=== PATIENT | male | born 1990 | race Caucasian/White ===

== ENCOUNTER 2016-06-02 13:29 | Emergency (ER) | payer OTHER ==
--- NOTE | 2016-06-02 14:06 | DIAGNOSTIC IMAGING REPORT ---
PROCEDURE: XR CHEST 2 VIEW INDICATION: CHEST PAIN TECHNIQUE: PA and lateral views. COMPARISON: Chests 10/20/2015, 2013 and 2009 FINDINGS: Lungs are clear. Heart and mediastinum are normal. Thorax is normal. IMPRESSION: 1. Negative chest.
--- NOTE | 2016-06-02 15:43 | ED ORDER SUMMARY ---
..... Patient: JASON MATHIS OrderSheet [facility] VisitID: [id number] [place] [address] 25y, M Registration Date/Time: 06/02/2016 ORDER SHEET Weight: 171.5 kg Allergies: Codeine, Toradol GENERAL ORDERS: Chest 2V Urgent (13:40 06/02/2016 EKoroleva P.A.-C) (Ack 13:42 RKaruga) Account Resolution Analyst (Continuous) (13:40 06/02/2016 EKoroleva P.A.-C) (Ack 13:42 RKaruga) (14:13 RKaruga) (14:13 EBonham) Cardiac Panel Stat (13:40 06/02/2016 EKoroleva P.A.-C) (Ack 13:42 RKaruga) EKG - ER Stat (13:40 06/02/2016 EKoroleva P.A.-C) (Ack 13:42 RKaruga) [facility] Vitals (15:19 06/02/2016 EKoroleva P.A.-C) (15:24 [facility] MEDICATION ORDERS: IV FLUIDS: IV Saline Lock (13:40 06/02/2016 EKoroleva P.A.-C) (14:13 EBonham) Dilaudid IV 0.5 mg (HIGH ALERT MEDICATION, NOW) (15:06 06/02/2016 EKoroleva P.A.-C) (15:32 [facility] ORDER SHEET NOTES: [Electronically signed by Ellie Jackson P.A.-C (15:55 06/02/2016)] [Electronically signed by Juliann Hopkins (15:57 06/02/2016)] [Electronically locked/signed by Juliann Hopkins (15:57 06/02/2016)]
--- NOTE | 2016-06-02 15:43 | ED CLINICAL REPORT ---
Clinical Report - Physicians/Mid Levels [facility] [address] [place] [place] [address] 06/02/2016 13:30 [id number] Time Seen: 13:32 Jun 02 2016. Arrived- By private vehicle. Historian- patient. HISTORY OF PRESENT ILLNESS Chief Complaint: CHEST PAIN. It is described as pressure and tightness and it is described as located in the central chest area. This started just prior to arrival and is still present. (Patient reports chest pain central in nature, constant dull beginning at 7 AM. Reports history of similar, distantly. Patient is a smoker, one to 2 cigarettes a day, has been smoking for 10+ years. he denies recent illness, new medications. Denies nausea or vomiting. Denies any trauma.). REVIEW OF SYSTEMS No cough, pedal edema, calf pain, fainting episodes or headache. No sore throat, blurred vision or abdominal pain. All systems otherwise negative, except as recorded above. PAST HISTORY no recent surgery < 2 mos. SOCIAL HISTORY Smoker- current status unknown. History of drug use: marijuana. No cocaine. Not an IV drug user. No alcohol use. ADDITIONAL NOTES The nursing notes have been reviewed. PHYSICAL EXAM Vital Signs: 06/02/2016 13:42 BP: 132/66. HR: 63. RR: 18. O2 saturation: 99%. Temp: 98.5 F. Appearance: Alert. No acute distress. ENT: Nose normal. Pharynx normal. Neck: Normal inspection. Neck supple. CVS: Normal heart rate and rhythm. Heart sounds normal. Respiratory: No respiratory distress. No respiratory distress. Breath sounds normal. Chest nontender. No accessory muscle use, splinting or decreased air movement. Abdomen: Soft. Back: Normal external inspection. No CVA tenderness. Neuro: Oriented X 3. No motor deficit. LABS, X-RAYS, AND EKG EKG: EKG time: (1348). No acute process. No acute ischemia. Normal EKG. Rate: 59. Normal P waves. Normal STEWART. Normal QRS complex. Normal ST and T waves and QT. The study has been interpreted contemporaneously. The study has been independently viewed by me. The EKG appears to be a good tracing. Chest X-ray: (IMPRESSION: 1. Negative chest. Electronically Final signed by:Antonio Yepez MD 06/02/2016 2:10:17 PM). Laboratory Tests: CBC w Diff: (BERTA: 06/02/2016 14:10) ( MsgRcvd 06/02/2016 14:44) Final results Test Result Flag Units (Reference) WHITE BLOOD COUNT 8.4 K/uL (4.5-11.5) RED BLOOD COUNT 5.12 M/uL (4.50-5.90) HEMOGLOBIN 15.3 gm/dL (13.5-17.5) HEMATOCRIT 46.0 % (41.0-53.0) MEAN CELL VOLUME 90 fL (80-100) MEAN CORPUSCULAR HGB 30 pg (26-34) MEAN CORPUSCULAR HGB CONC 33 g/dL (31-37) RED CELL DISTRIBUTION WIDTH 13.3 % (11.6-14.8) PLATELET COUNT 252 K/uL (150-400) NEUTROPHIL % 68.9 % (50-75) LYMPH % 23.3 L % (25-40) MONO % 4.7 % (3-14) EOSINOPHIL % 2.7 % (0-4) BASOPHIL % 0.4 % (0-2) CHEM 13 PANEL: (BERTA: 06/02/2016 14:10) ( MsgRcvd 06/02/2016 15:36) Final results Test Result Flag Units (Reference) GLUCOSE 93 mg/dL (70-110) BUN 19 H mg/dL (7-18) CREATININE 0.8 mg/dL (0.6-1.3) Estimated GFR >60 mL/min Estimated GFR- >60 mL/min Note: Persistent reduction over 3 months in eGFR<60 mL/min/1.73 m2 defines CKD. Patients with eGFR values>=60 mL/min/1.73 m2 may also have CKD if evidence ofpersistent proteinuria. Additional information may be foundat www.kidney.org. SODIUM 143 mmol/L (136-145) POTASSIUM 4.4 mmol/L (3.5-5.1) CHLORIDE 105 mmol/L (98-107) CARBON DIOXIDE 28 mmol/L (21-32) CALCIUM 9.5 mg/dL (8.5-10.1) TOTAL PROTEIN 7.4 g/dL (6.4-8.2) ALBUMIN 3.9 g/dL (3.3-5.0) BILIRUBIN, TOTAL 0.3 mg/dL (0.0-1.0) ALKALINE PHOSPHATASE 51 U/L (46-116) AST (SGOT) 16 U/L (15-37) ALT (SGPT) 25 U/L (12-78) CPK 125 U/L (24-260) MAGNESIUM 1.9 mg/dL (1.8-2.4) TROPONIN I <0.05 L ng/mL (0.00-1.5) TROPONIN REFERENCE RANGE:<0.1 NEGATIVE0.1-1.5 INDETERMINANT>1.5 POSITIVE . PROGRESS AND PROCEDURES Course of Care: In the ER patient with no tachycardia. PERC: 0 criteria No need for further workup, as <2% chance of PE. If no criteria are positive and clinicians pre-test probability is <15%, PERC Rule criteria are satisfied. Patient reports pain was worsened with movement previously. Pain is improving now. Stable. To follow up outpatient. ACS, PE less likely, here in the ER EKG chest x-ray lab workup is unremarkable. Patient with symptoms ongoing for now almost 12 hours, and improving. 06/02/2016 15:32 BP: 122/71. HR: 62. RR: 14. O2 saturation: 97%. Patient is stable. Physical exam findings are improved. Symptoms better. Patient/family counseled. Wells clinical prediction rule (PE): No clinical symptoms of DVT, other diagnosis less likely than PE, immobilization or surgery within 4wks, previous DVT or PE or hemoptysis. No malignancy. Heart rate less than 100 per minute. Medical Decision Making: The exam did not reveal unequal pulses, lower extremity edema or calf tenderness. Serious or life threatening conditions are unlikely to be a cause for the patient's findings. The differential diagnosis includes, but is not limited to, coronary artery disease, acute coronary syndrome, pulmonary embolism, aortic dissection and pneumonia. The patient's Well's criteria suggests low risk. Abnormal tests include the troponin. Ordered tests include an EKG and a chest x-ray. The pain got better. Disposition: Discharged. CLINICAL IMPRESSION Atypical chest pain INSTRUCTIONS No strenuous activity. Rest. Avoid stimulants (such as cigarettes, coffee, cold medicines, sinus medicines, street drugs). Follow a low salt diet. OTC Medications: Take OTC medications according to label instructions. Available over the counter. Acetaminophen (available over the counter): take according to label instructions. Follow-up: Follow up with your doctor in three days. Understanding of the discharge instructions verbalized by patient. (Electronically signed by Ellie Jackson P.A.-C 06/02/2016 15:55)
--- NOTE | 2016-06-02 15:43 | ED ORDER SUMMARY ---
..... Patient: JASON MATHIS OrderSheet [facility] VisitID: [id number] [place] [address] 25y, M Registration Date/Time: 06/02/2016 ORDER SHEET Weight: 171.5 kg Allergies: Codeine, Toradol GENERAL ORDERS: Chest 2V Urgent (13:40 06/02/2016 EKoroleva P.A.-C) (Ack 13:42 RKaruga) Gunite Nozzle Operator (Continuous) (13:40 06/02/2016 EKoroleva P.A.-C) (Ack 13:42 RKaruga) (14:13 RKaruga) (14:13 EBonham) Cardiac Panel Stat (13:40 06/02/2016 EKoroleva P.A.-C) (Ack 13:42 RKaruga) EKG - ER Stat (13:40 06/02/2016 EKoroleva P.A.-C) (Ack 13:42 RKaruga) (15:[facility]) Vitals (15:19 06/02/2016 EKoroleva P.A.-C) (15:24 [facility] MEDICATION ORDERS: IV FLUIDS: IV Saline Lock (13:40 06/02/2016 EKoroleva P.A.-C) (14:13 EBonham) Dilaudid IV 0.5 mg (HIGH ALERT MEDICATION, NOW) (15:06 06/02/2016 EKoroleva P.A.-C) (15:32 [facility] ORDER SHEET NOTES: [Electronically signed by Ellie Jackson P.A.-C (15:55 06/02/2016)] [Electronically signed by Juliann Hopkins (15:57 06/02/2016)] [Electronically locked/signed by Juliann Hopkins (15:57 06/02/2016)]
--- NOTE | 2016-06-02 15:43 | ED NURSING NOTES ---
Clinical Report - Nurses [facility] [address] [place] [address] 06/02/2016 13:30 Patient: JASON MATHIS TRIAGE Triage time 1335. Acuity: LEVEL 3. Chief Complaint: CHEST PAIN. Alert. No acute distress. --13:44 Juliann Hopkins 13:42 06/02/16. BP: 132/66. HR: 63. RR: 18. O2 saturation: 99%. Temp: 98.5 F. Pain level now 10/21. --13:44 Juliann Hopkins. Weight: 171.5 kg. Height/Length: 73 inches. BMI: 49.9. --13:41 Juliann Hopkins. Medications None. --13:42 Juliann Hopkins. Allergies Codeine. --13:42 Juliann Hopkins Toradol. --13:42 Juliann Hopkins. History Arrived by private vehicle. Historian: family. Accompanied by family. This started today. ( left axilla). 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 SOCIAL HX: Light tobacco smoker (cigarette)- less than 1/2 a pack per day. --13:44 Juliann Hopkins. PROBLEMS: Substance Abuse. Plantar Fasciitis. Back fracture. Gastroenteritis. Hypertension. Arthritis. Anxiety disorder. Depression. --13:43 Juliann Hopkins. ADDITIONAL SURGERIES: Adenoidectomy. Lap band. Tonsillectomy. --13:43 Juliann Hopkins. Interventions ID band on patient. To treatment room. --13:44 Juliann Hopkins. PHYSICAL ASSESSMENT Ambulatory to room. GENERAL / NEURO / PSYCH: Alert. Oriented X 4. Appears in no acute distress. HEENT: Mucous membranes are pink. RESPIRATORY: Respirations not labored. Chest nontender. Breath sounds within normal limits. CVS: Normal sinus rhythm noted. Heart sounds within normal limits. Pulses within normal limits. Capillary refill less than 2 seconds. GI / : Abdomen soft and nontender. EXTREMITIES: No lower extremity edema. SKIN: Skin is warm and dry. Normal skin turgor. Skin is non-tender. --13:45 Juliann Hopkins. NURSING PROGRESS NOTES EKG time: (13:48). EKG was performed by a tech and shown to the ED physician. --14:00 James Hilton 14:13 06/02/2016 Site #1 started via IV in the left antecubital space with an 20g angiocath, with aseptic technique and good blood return; one attempt. Blood drawn: rainbow set. Labeled in the presence of the patient and sent to the lab. Saline lock flushed with 10 mL saline. --14:13 Juliann Hopkins <<STRICKEN ENTRY-- 15:25 06/02/16. BP: 122/82. HR: 85. RR: 16. O2 saturation: 100%. Pain level now 2/10. --15:25 Juliann Hopkins --END STRIKE>> Charted on wrong patient. --15:27 Juliann Hopkins <<STRICKEN ENTRY-- The patient is calm and resting quietly. Overall patient status is the same- he states feels the same. Patient informed about reason for wait and about plan of care. Patient waiting for lab results. --15:26 Juliann Hopkins --END STRIKE>> Charted On Wrong Patient --15:27 Juliann Hopkins 15:29 06/02/16. BP: 127/71 taken on the right arm, via an automated monitor, while lying. HR: 60 (regular, normal rate and strong). RR: 18. O2 saturation: 97% on room air. --15:30 Lida, James 15:32 06/02/16. BP: 122/71. HR: 62. RR: 14. O2 saturation: 97%. Pain level now 7/10. --15:32 Juliann Hopkins The patient is calm and resting quietly. Overall patient status is the same- he states feels the same. --15:32 Juliann Hopkins 15:32 06/02/2016 Dilaudid (HYDROmorphone HCl PF) IVP 0.5 mg given. via site #1. Allergies verified, confirmed 5 rights and sedative warning given to the patient. IV patency established. IV site checked: no pain, redness, or swelling. IV flushed thoroughly pre- and post-medication administration. IVP given by RN. --15:32 Juliann Hopkins. DISPOSITION / DISCHARGE Departure time: 1555. Condition at departure: improved and stable. No learning barriers present. Discharge instructions provided and reviewed with the patient. Reviewed medication(s). Patient verbalized understanding. Written instructions provided in Somali. The patient was discharged by the physician credit assistant. He was discharged home and accompanied by parent. He left the Emergency Department ambulatory and via private vehicle. Parent driving. --15:56 Juliann Hopkins 15:55 06/02/16. BP: 144/77. HR: 60. RR: 14. O2 saturation: 98%. Pain level now 0/10. --15:56 Juliann Hopkins 15:56 06/02/2016 Site #1 removed upon discharge. Pressure dressing applied. --15:56 Juliann Hopkins. Locked/Released at 06/02/2016 15:57 by Juliann Hopkins,
--- NOTE | 2016-06-02 15:43 | ED NURSING NOTES ---
Clinical Report - Nurses [facility] [address] [place] [address] 06/02/2016 13:30 Patient: JASON MATHIS TRIAGE Triage time 1335. Acuity: LEVEL 3. Chief Complaint: CHEST PAIN. Alert. No acute distress. --13:44 Juliann Hopkins 13:42 06/02/16. BP: 132/66. HR: 63. RR: 18. O2 saturation: 99%. Temp: 98.5 F. Pain level now 10/21. --13:44 Juliann Hopkins. Weight: 171.5 kg. Height/Length: 73 inches. BMI: 49.9. --13:41 Juliann Hopkins. Medications None. --13:42 Juliann Hopkins. Allergies Codeine. --13:42 Juliann Hopkins Toradol. --13:42 Juliann Hopkins. History Arrived by private vehicle. Historian: family. Accompanied by family. This started today. ( left axilla). 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 SOCIAL HX: Light tobacco smoker (cigarette)- less than 1/2 a pack per day. --13:44 Juliann Hopkins. PROBLEMS: Substance Abuse. Plantar Fasciitis. Back fracture. Gastroenteritis. Hypertension. Arthritis. Anxiety disorder. Depression. --13:43 Juliann Hopkins. ADDITIONAL SURGERIES: Adenoidectomy. Lap band. Tonsillectomy. --13:43 Juliann Hopkins. Interventions ID band on patient. To treatment room. --13:44 Juliann Hopkins. PHYSICAL ASSESSMENT Ambulatory to room. GENERAL / NEURO / PSYCH: Alert. Oriented X 4. Appears in no acute distress. HEENT: Mucous membranes are pink. RESPIRATORY: Respirations not labored. Chest nontender. Breath sounds within normal limits. CVS: Normal sinus rhythm noted. Heart sounds within normal limits. Pulses within normal limits. Capillary refill less than 2 seconds. GI / : Abdomen soft and nontender. EXTREMITIES: No lower extremity edema. SKIN: Skin is warm and dry. Normal skin turgor. Skin is non-tender. --13:45 Juliann Hopkins. NURSING PROGRESS NOTES EKG time: (13:48). EKG was performed by a tech and shown to the ED physician. --14:00 James Hilton 14:13 06/02/2016 Site #1 started via IV in the left antecubital space with an 20g angiocath, with aseptic technique and good blood return; one attempt. Blood drawn: rainbow set. Labeled in the presence of the patient and sent to the lab. Saline lock flushed with 10 mL saline. --14:13 Juliann Hopkins <<STRICKEN ENTRY-- 15:25 06/02/16. BP: 122/82. HR: 85. RR: 16. O2 saturation: 100%. Pain level now 2/10. --15:25 Juliann Hopkins --END STRIKE>> Charted on wrong patient. --15:27 Juliann Hopkins <<STRICKEN ENTRY-- The patient is calm and resting quietly. Overall patient status is the same- he states feels the same. Patient informed about reason for wait and about plan of care. Patient waiting for lab results. --15:26 Juliann Hopkins --END STRIKE>> Charted On Wrong Patient --15:27 Juliann Hopkins 15:29 06/02/16. BP: 127/71 taken on the right arm, via an automated monitor, while lying. HR: 60 (regular, normal rate and strong). RR: 18. O2 saturation: 97% on room air. --15:30 Lida, James 15:32 06/02/16. BP: 122/71. HR: 62. RR: 14. O2 saturation: 97%. Pain level now 7/10. --15:32 Juliann Hopkins The patient is calm and resting quietly. Overall patient status is the same- he states feels the same. --15:32 Juliann Hopkins 15:32 06/02/2016 Dilaudid (HYDROmorphone HCl PF) IVP 0.5 mg given. via site #1. Allergies verified, confirmed 5 rights and sedative warning given to the patient. IV patency established. IV site checked: no pain, redness, or swelling. IV flushed thoroughly pre- and post-medication administration. IVP given by RN. --15:32 Juliann Hopkins. DISPOSITION / DISCHARGE Departure time: 1555. Condition at departure: improved and stable. No learning barriers present. Discharge instructions provided and reviewed with the patient. Reviewed medication(s). Patient verbalized understanding. Written instructions provided in Cypriot. The patient was discharged by the physician physiotherapy assistant. He was discharged home and accompanied by parent. He left the Emergency Department ambulatory and via private vehicle. Parent driving. --15:56 Juliann Hopkins 15:55 06/02/16. BP: 144/77. HR: 60. RR: 14. O2 saturation: 98%. Pain level now 0/10. --15:56 Juliann Hopkins 15:56 06/02/2016 Site #1 removed upon discharge. Pressure dressing applied. --15:56 Juliann Hopkins. Locked/Released at 06/02/2016 15:57 by Juliann Hopkins,
--- NOTE | 2016-06-02 15:57 | ED MAR SUMMARY ---
..... Medication Administration Record [facility] [address] [place] [address] Patient: JASON MATHIS Visit ID: [id number] 25y, M Weight: 171.5 kg Height/Length: 73 in BMI: 49.9 ALLERGIES: Toradol, Codeine Given 15:32 06/02/2016 Juliann Hopkins, Medication Administered: DILAUDID [IVP] (HYDROMORPHONE HCL PF), Dose: 0.5 mg IVP, Site: #1 left AC. Medication Ordered: Dilaudid IV 0.5 mg (HIGH ALERT MEDICATION, NOW).
--- NOTE | 2016-06-02 15:57 | ED MAR SUMMARY ---
..... Medication Administration Record [facility] [address] [place] [address] Patient: JASON MATHIS Visit ID: [id number] 25y, M Weight: 171.5 kg Height/Length: 73 in BMI: 49.9 ALLERGIES: Toradol, Codeine Given 15:32 06/02/2016 Juliann Hopkins, Medication Administered: DILAUDID [IVP] (HYDROMORPHONE HCL PF), Dose: 0.5 mg IVP, Site: #1 left AC. Medication Ordered: Dilaudid IV 0.5 mg (HIGH ALERT MEDICATION, NOW).
--- NOTE | 2016-06-02 15:57 | ED MED RECONCILIATION SUMMARY ---
Patient: JASON MATHIS Medication Reconciliation Report [facility] VisitID: [id number] [address] [place] [address] 25y, M Registration Date/Time: 06/02/2016 Weight: 171.5 kg Height/Length: 73 in. BMI: 49.9 ALLERGIES: Codeine, Toradol The patient's Home Medications are listed below: NONE. The source(s) of the original Home Medication information: Not obtained. The following Medications were given to the patient in the Emergency Department: Dilaudid [IVP] IVP 0.5 mg, administered: 06/02/2016 3:32:00 PM The following Medications were prescribed to the patient: Take OTC medications according to label instructions. Available over the counter. -- Ellie Jackson, P.A.-C Acetaminophen (available over the counter): take according to label instructions. -- Ellie Jackson, P.A.-C
--- NOTE | 2016-06-02 15:57 | ED MED RECONCILIATION SUMMARY ---
Patient: JASON MATHIS Medication Reconciliation Report [facility] VisitID: [id number] [address] [place] [address] 25y, M Registration Date/Time: 06/02/2016 Weight: 171.5 kg Height/Length: 73 in. BMI: 49.9 ALLERGIES: Codeine, Toradol The patient's Home Medications are listed below: NONE. The source(s) of the original Home Medication information: Not obtained. The following Medications were given to the patient in the Emergency Department: Dilaudid [IVP] IVP 0.5 mg, administered: 06/02/2016 3:32:00 PM The following Medications were prescribed to the patient: Take OTC medications according to label instructions. Available over the counter. -- Ellie Jackson, P.A.-C Acetaminophen (available over the counter): take according to label instructions. -- Ellie Jackson, P.A.-C
--- NOTE | 2016-06-02 15:57 | ED DISCHARGE INSTRUCTIONS ---
Patient: JASON MATHIS General Instructions [facility] VisitID: [id number] [place] [address] 25y, M Registration Date/Time: 06/02/2016 Atypical chest pain INSTRUCTIONS No strenuous activity. Rest. Avoid stimulants (such as cigarettes, coffee, cold medicines, sinus medicines, street drugs). Follow a low salt diet. OTC Medications: Take OTC medications according to label instructions. Available over the counter. Acetaminophen (available over the counter): take according to label instructions. Follow-up: Follow up with your doctor in three days. Understanding of the discharge instructions verbalized by patient. ADDITIONAL INFORMATION Chest Pain, Noncardiac Based on your visit today, the exact cause of your chest pain is not certain. Your condition does not seem serious and your pain does not appear to be coming from your heart. However, sometimes the signs of a serious problem take more time to appear. Therefore, please watch for the warning signs listed below. Home Care: Rest today and avoid strenuous activity. Take any prescribed medicine as directed. Follow Up with your doctor or this facility as instructed or if you do not start to feel better within 24 hours. Get Prompt Medical Attention if any of the following occur: A change in the type of pain: if it feels different, becomes more severe, lasts longer, or begins to spread into your shoulder, arm, neck, jaw or back Shortness of breath or increased pain with breathing Cough with dark colored sputum (phlegm) or blood Weakness, dizziness, or fainting Fever of 100.4F (38C) or higher, or as directed by your healthcare provider Swelling, pain or redness in one leg Chest Pain, Uncertain Cause Chest pain can happen for a number of reasons. Sometimes the cause can not be determined. If yourcondition does not seem serious, and your pain does not appear to be coming from your heart, your doctor may recommend watching it closely. Sometimes the signs of a serious problem take more time to appear. Therefore, watch for the warning signs listed below. Home care After your visit, follow these recommendations: Rest today and avoid strenuous activity. Take any prescribed medicine as directed. Follow-up care Follow up with your doctor or this facility as instructed or if you do not start to feel better within 24 hours. Call 911 Get immediate medical attention if any of the following occur: A change in the type of pain: if it feels different, becomes more severe, lasts longer, or begins to spread into your shoulder, arm, neck, jaw or back Shortness of breath or increased pain with breathing Weakness, dizziness, or fainting Rapid heart beat Get prompt medical attention Call your doctor right away if any of the following occur: Cough with dark colored sputum (phlegm) or blood Fever of 100.4F(38C) or higher, or as directed by your health care provider Swelling, pain or redness in one leg You have been given the following additional information: Chest Pain, Noncardiac Chest Pain, Uncertain Cause No strenuous activity. Rest. (Electronically signed by Ellie Jackson P.A.-C 06/02/2016 15:55)
== END 2016-06-02 15:55 | disposition home or self-care (01) ==
LOC: ED SRH 13:29
DX: R07.89 Other chest pain (principal)
CPT/HCPCS: 90100; 90616; 92610; 92720; 95059

== ENCOUNTER 2016-10-18 01:43 | Emergency (ER) | payer OTHER ==
--- NOTE | 2016-10-18 04:12 | ED NURSING NOTES ---
Clinical Report - Nurses [facility] [address] [place] [address] 10/18/2016 1:43 [id number] Triage time 01:48 Oct 18 2016. Acuity: LEVEL 3. Chief Complaint: CHEST PAIN and DISCOMFORT and LEFT ARM PAIN, NECK PAIN and BACK PAIN. 01:51 10/18/16. SEPSIS SCREEN: Sepsis Screen. Negative (no infection suspected/documented). MATHEUS COMA SCORE: [place] Coma Scale: 15- eyes open spontaneously (4); best verbal response- oriented x 4 (5); best motor response- obeys commands (6). --01:51 Denise Mendoza R.N. 01:52 10/18/16. BP: 109/52 (large adult cuff) taken on the left arm. HR: 62. RR: 20. O2 saturation: 100% on room air. Temp: 98.1 F (oral). Pain level now: 12/21. --01:53 Denise Mendoza R.N. Weight: 165.5 kg stated. Height/Length: 74 inches Per Patient. BMI: 46.9. --01:50 Denise Mendoza R.N. Medications None. --01:49 Denise Mendoza R.N. Allergies Codeine. Toradol. --01:49 Denise Mendoza R.N. History Arrived by private vehicle. Historian: patient. Accompanied by family. This started just prior to arrival. He has had nausea. 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 PAST MEDICAL HX: Hypertension. SOCIAL HX: Current every day heavy tobacco smoker- less than 1 pack per day. Occasional alcohol use; consumes one beer a day. History of heavy drug use: marijuana. (4 hours ago). No infectious disease exposure. ABUSE ASSESSMENT: No report of abuse. SELF HARM ASSESSMENT: A self harm assessment was performed. The patient answered "no" to the question "Have you recently felt down, depressed, or hopeless?", "Have you noticed less interest or pleasure in doing things?", "Do you have thoughts of harming or killing yourself?", "Are you here because you tried to hurt yourself?", "Have you ever tried to hurt yourself before today?", "Have you recently had thoughts about harming or killing others?" and "Do you have any dangerous items in your possession?". Bedside precautions. --01:51 Denise Mendoza R.N. PROBLEMS: Atypical Chest Pain. Back Pain. Gastroenteritis. Abdominal Pain. Hypertension. Arthritis. Fracture. Anxiety disorder. Depression. Headache. URI. --01:50 Denise Mendoza R.N. The following entry was modified by Yakov Garcia MD, 03:47 Reason - Struck from template <<STRICKEN ENTRY-- Substance Abuse. --03:47 Yakov Garcia MD --END STRIKE>>. ADDITIONAL SURGERIES: Adenoidectomy. Lap band. Tonsillectomy. --01:50 Denise Mendoza R.N. Interventions ID band on patient. --01:51 Denise Mendoza R.N. PHYSICAL ASSESSMENT 01:55 10/18/16. Ambulatory to room. Patient gowned. GENERAL / NEURO / PSYCH: Alert. Oriented X 4. Appears anxious. HEENT: Mucous membranes are pink. RESPIRATORY: Respirations not labored. Chest nontender. Breath sounds within normal limits. CVS: Normal sinus rhythm noted. Heart sounds within normal limits. Pulses within normal limits. Capillary refill less than 2 seconds. GI / : Abdomen soft and nontender. EXTREMITIES: No lower extremity edema. SKIN: Skin is warm. Skin is non-tender. --01:55 Denise Mendoza R.N. NURSING PROGRESS NOTES 01:55 10/18/16. The plan of care for this patient has been created. Monitoring of patient in place. Patient gowned. Head of bed elevated. Reassurance given. Two patient identifiers checked. Call light placed in reach. Side rails up x 1. Bed placed in lowest position. Brakes of bed on. Patient ready for evaluation- chart flagged and ED physician notified. --01:55 Denise Mendoza R.N. 02:45 10/18/2016 Site #1 started via IV in the right antecubital space with an 20g angiocath, with aseptic technique and good blood return; one attempt. Saline lock flushed with 10 mL saline. --02:45 Denise Mendoza R.N. 02:59 10/18/16. HR: 54. RR: 16. O2 saturation: 100% on room air. --03:00 Denise Mendoza R.N. 03:04 10/18/16. BP: 113/56 (large adult cuff) taken on the left arm. --03:04 Denise Mendoza R.N. EKG time: (02:34). EKG was performed by a tech and shown to the ED physician. --03:10 Anabella Cortes 03:43 10/18/16. BP: 119/50 (large adult cuff) taken on the left arm. HR: 56 (regular and bradycardic). RR: 18. O2 saturation: 100% on nasal cannula at 2 liters/minute. Pain level now: 7/10. Additional comments: chest. --03:49 Denise Mendoza R.N. 03:46 10/18/16. RESPIRATORY: No respiratory distress. CVS: The patient reports left-sided chest pain is still present and worsening and currently moderate in severity and described as stabbing (comes and goes). SKIN: Skin is warm. Skin color within normal limits. --03:49 Denise Mendoza R.N. 04:12 10/18/2016 Acetaminophen (APAP) PO Tablets 1000 mg given. Allergies verified and confirmed 5 rights. --04:12 Denise Mendoza R.N. DISPOSITION / DISCHARGE 04:16 10/18/2016 Site #1 removed upon discharge. Bandaid applied. --04:16 Denise Mendoza R.N. 04:16 10/18/16. Condition at departure: unchanged. No learning barriers present. Discharge instructions provided and reviewed with the patient. Patient verbalized understanding. Written instructions provided in Wolof. The patient was discharged by the physician. He was discharged home and accompanied by parent. He left the Emergency Department ambulatory and via private vehicle. Parent driving. --04:16 Denise Mendoza R.N. 04:12 10/18/16. BP: 127/60 (large adult cuff) taken on the left arm. HR: 54. RR: 18. O2 saturation: 98% on room air. Temp: 98.1 F (oral). Pain level now: 5/10. Additional comments: Been bradycardic entire time. --04:16 Denise Mendoza R.N. Departure time: 04:20 Oct 18 2016. --04:20 Denise Mendoza R.N. Locked/Released at 10/18/2016 4:20 by Denise Mendoza R.N.
--- NOTE | 2016-10-18 04:12 | ED CLINICAL REPORT ---
Clinical Report - Physicians/Mid Levels [facility] [address] [place] [address] 10/18/2016 1:43 Patient: JASON MATHIS Time Seen: 02:04. Arrived- By private vehicle. Historian- patient. HISTORY OF PRESENT ILLNESS Chief Complaint: CHEST PAIN. At its maximum, severity described as severe. When seen in the E.D., severity described as severe. This started several hours ago and is still present. It was abrupt in onset and has been constant and waxing/waning. Onset during light activity. It is described as "pain" and it is described as located in the left chest area and radiating to the neck and upper back and to the left arm and left shoulder. No nausea, vomiting, difficulty breathing or diaphoresis. Similar symptoms previously: Many times. Diagnosis: atypical chest pain. REVIEW OF SYSTEMS No chills, fever, sweats, calf pain or difficulty breathing. No pedal edema, palpitations, abdominal pain, constipation or diarrhea. No nausea, vomiting or urinary problems. All systems otherwise negative, except as recorded above. PAST HISTORY Problems: Substance Abuse. Atypical Chest Pain. Back Pain. Plantar Fasciitis. Back fracture. Gastroenteritis. Abdominal Pain. Laceration. Hypertension. Arthritis. Fracture. Sunburn. Anxiety disorder. Depression. Sinus Problems. Sinusitis. Headache. URI. Additional Surgeries: Adenoidectomy. Lap band. Tonsillectomy. Medications: None. Allergies: Codeine. Toradol. SOCIAL HISTORY Current every day heavy tobacco smoker (cigarette)- less than 1 pack per day. Regular alcohol use; consumes beer daily. History of drug use: marijuana. Recently used drugs just prior to arrival. FAMILY HISTORY History of heart disease. ADDITIONAL NOTES The nursing notes have been reviewed. PHYSICAL EXAM Vital Signs: 10/18/2016 01:52 BP: 109/52. HR: 62. RR: 20. O2 saturation: 100%. Temp: 98.1 F. Pain level now: 8/10. Have been reviewed. Appearance: Alert. Eyes: Pupils equal, round and reactive to light. ENT: Pharynx normal. Neck: Normal inspection. Neck supple. No JVD. CVS: Normal heart rate and rhythm. Heart sounds normal. Respiratory: No respiratory distress. Chest pain reproducible with palpation of the costochondral junction. Breath sounds normal. Abdomen: Soft and nontender. Bowel sounds normal. No organomegaly. No mass. Obese. Back: Normal external inspection. No CVA tenderness. Skin: Skin warm and dry. Normal skin color. No rash. Normal skin turgor. Extremities: Extremities exhibit normal ROM. No lower extremity edema. LABS, X-RAYS, AND EKG EKG: No acute process. Rate: 51. sinus arrhythmia. EKG unchanged when compared with prior EKG. (02 Jun 2016). The study has been independently viewed by me. Chest X-ray: No acute disease. The X-rays were independently viewed by me. A comparison with prior films reveals that the findings are unchanged (June 02, 2016). Laboratory Tests: UA-Culture if indicated: (BERTA: 10/18/2016 03:10) ( [facility] 10/18/2016 03:26) Final results Test Result Flag Units (Reference) URINE COLOR YELLOW URINE APPEARANCE CLEAR URINE GLUCOSE NEGATIVE (NEGATIVE) URINE BILIRUBIN NEGATIVE (NEGATIVE) URINE KETONE NEGATIVE (NEGATIVE) URINE SPECIFIC GRAVITY >= 1.030 (1.010-1.030) URINE PH 6.0 (5.0-8.0) URINE PROTEIN NEGATIVE (NEGATIVE) URINE UROBILINOGEN 0.2 EU/dL (0.2-1.0) URINE NITRITE NEGATIVE (NEGATIVE) URINE BLOOD NEGATIVE (NEGATIVE) URINE LEUK ESTERASE NEGATIVE (NEGATIVE) URINE RBC NONE SEEN rbc/hpf (0-1) URINE WBC RARE wbc/hpf (0-1) URINE EPITHELIAL CELLS NONE SEEN EPI/hpf (0-5) URINE BACTERIA NONE SEEN (NONE SEEN) URINE COMMENT CULT NOT INDICATED URINE CULTURES ARE SET-UP BASED ON THE FOLLOWING CRITERIA:POSITIVE NITRITEPOSITIVE LEUKOCYTE ESTERASEGREATER THAN 10 WHITE BLOOD CELLSMODERATE (2+) OR GREATER BACTERIA CBC w Diff: (BERTA: 10/18/2016 03:00) ( [facility] 10/18/2016 03:21) Final results Test Result Flag Units (Reference) WHITE BLOOD COUNT 8.0 K/uL (4.5-11.5) RED BLOOD COUNT 4.86 M/uL (4.50-5.90) HEMOGLOBIN 14.6 gm/dL (13.5-17.5) HEMATOCRIT 43.9 % (41.0-53.0) MEAN CELL VOLUME 90 fL (80-100) MEAN CORPUSCULAR HGB 30 pg (26-34) MEAN CORPUSCULAR HGB CONC 33 g/dL (31-37) RED CELL DISTRIBUTION WIDTH 13.4 % (11.6-14.8) PLATELET COUNT 234 K/uL (150-400) NEUTROPHIL % 57.3 % (50-75) LYMPH % 32.5 % (25-40) MONO % 7.7 % (3-14) EOSINOPHIL % 2.3 % (0-4) BASOPHIL % 0.2 % (0-2) Urine Drug Screen: (BERTA: 10/18/2016 03:10) ( [facility] 10/18/2016 04:02) Final results Test Result Flag Units (Reference) AMPHETAMINE/METHAMPHETAMINE NEGATIVE (NEGATIVE) BARBITURATE NEGATIVE (NEGATIVE) BENZODIAZEPINE NEGATIVE (NEGATIVE) CANNABINOID POSITIVE H (NEGATIVE) COCAINE NEGATIVE (NEGATIVE) ECSTASY NEGATIVE (NEGATIVE) METHADONE NEGATIVE (NEGATIVE) OPIATE NEGATIVE (NEGATIVE) The urine drug screen is a qualitative screening test fordrug overdose and abuse. All screen results should beconsidered as presumptive.Drugs screened for are as follows:BenzodiazepinesCocaineAmphetamines/MetamphetaminesTHC (Tetrahydrocannabinol)OpiatesBarbituratesEcstasyMethadonePositive results are unconfirmed. For confirmation, notifythe lab for the specimen to be sent to the reference lab.All confirmations must be performed by a differentmethodology.The ingestion of natural herbal and plant productscontaining Ephedra/Ephedra metabolites can produce in urineone or more substances capable of cross reacting withamphetamine/methamphetamine immunoassays. These testsprovide a preliminary result only. A more specificalternative chemical method must be used to obtain aconfirmed analytical result. Ethyl Alcohol: (BERTA: 10/18/2016 03:00) ( [facility] 10/18/2016 03:34) Final results Test Result Flag Units (Reference) ETHYL ALCOHOL <3 L mg/dL (3-10) CMP: (BERTA: 10/18/2016 03:00) ( [facility] 10/18/2016 04:02) Final results Test Result Flag Units (Reference) GLUCOSE 97 mg/dL (70-110) BUN 18 mg/dL (7-18) CREATININE 0.8 mg/dL (0.6-1.3) Estimated GFR >60 mL/min Estimated GFR- >60 mL/min Note: Persistent reduction over 3 months in eGFR<60 mL/min/1.73 m2 defines CKD. Patients with eGFR values>=60 mL/min/1.73 m2 may also have CKD if evidence ofpersistent proteinuria. Additional information may be foundat www.kidney.org. SODIUM 140 mmol/L (136-145) POTASSIUM 3.5 mmol/L (3.5-5.1) CHLORIDE 107 mmol/L (98-107) CARBON DIOXIDE 26 mmol/L (21-32) CALCIUM 9.2 mg/dL (8.5-10.1) TOTAL PROTEIN 7.0 g/dL (6.4-8.2) ALBUMIN 3.4 g/dL (3.3-5.0) BILIRUBIN, TOTAL 0.3 mg/dL (0.0-1.0) ALKALINE PHOSPHATASE 54 U/L (46-116) AST (SGOT) 15 U/L (15-37) ALT (SGPT) 28 U/L (12-78) LIPASE 168 U/L (73-393) AMYLASE 54 U/L (25-115) CPK 144 U/L (24-260) TROPONIN I <0.05 L ng/mL (0.00-1.5) TROPONIN REFERENCE RANGE:<0.1 NEGATIVE0.1-1.5 INDETERMINANT>1.5 POSITIVE . PROGRESS AND PROCEDURES Course of Care: Patient is stable. Patient/family counseled. Old medical records reviewed. Disposition: Discharged. Condition: stable. CLINICAL IMPRESSION Atypical chest pain Substance abuse- marijuana. Possible costochondritis INSTRUCTIONS No strenuous activity. Avoid stimulants (such as cigarettes, coffee, cold medicines, sinus medicines, street drugs). Lose weight. Warnings: Further evaluation is necessary. GENERAL WARNINGS: Return or contact your physician immediately if your condition worsens or changes unexpectedly, if not improving as expected, or if other problems arise. OTC Medications: Acetaminophen (available over the counter): take according to label instructions. Follow-up: Follow up with your doctor NARA CLEMENT tomorrow. Call for an appointment. Understanding of the discharge instructions verbalized by patient. (Electronically signed by Yakov Garcia MD 10/18/2016 6:24)
--- NOTE | 2016-10-18 04:13 | ED ORDER SUMMARY ---
..... Patient: JASON MATHIS OrderSheet [facility] VisitID: [id number] [place] [address] 26y, M Registration Date/Time: 10/18/2016 ORDER SHEET Weight: 165.5 kg (stated) Allergies: Codeine, Toradol GENERAL ORDERS: Chest 1V Urgent (02:10/18/2016 Bryce REED) (Ack 2:25 AMcQuoid ER Tech1) (2:39 GUnger) Criminal Analyst (Continuous) (02:10/18/2016 Bryce REED) (2:22 JSanders R.N.) CBC w Diff Urgent (02:10/18/2016 Bryce REED) (Ack 2:25 AMcQuoid ER Tech1) (3:06 JSanders R.N.) CMP Urgent (02:10/18/2016 Bryce REED) (Ack 2:25 AMcQuoid ER Tech1) (3:06 JSanders R.N.) Amylase Urgent (02:10/18/2016 Bryce REED) (Ack 2:25 AMcQuoid ER Tech1) (3:06 JSanders R.N.) Lipase Urgent (02:10/18/2016 Bryce REED) (Ack 2:25 AMcQuoid ER Tech1) (3:06 JSanders R.N.) CPK Urgent (02:10/18/2016 Bryce REED) (Ack 2:25 AMcQuoid ER Tech1) (3:06 JSanders R.N.) Troponin-I Urgent (02:10/18/2016 Bryce REED) (Ack 2:25 AMcQuoid ER Tech1) (3:06 JSanders R.N.) Oxygen (2 L/min) (NC) (02:10/18/2016 Bryce REED) (Ack 2:25 AMcQuoid ER Tech1) (2:45 JSanders R.N.) Pulse oximeter (02:10/18/2016 Bryce REED) (2:22 JSanders R.N.) EKG - ER Stat (02:10/18/2016 Bryce REED) (Ack 2:25 AMcQuoid ER Tech1) (2:34 JSanders R.N.) UA-Culture if indicated Urgent (02:10/18/2016 Bryce REED) (Ack 2:35 AMcQuoid ER Tech1) (3:13 JSanders R.N.) Urine Drug Screen Urgent (02:10/18/2016 Bryce REED) (Ack 2:35 AMcQuoid ER Tech1) (3:13 JSanders R.N.) Ethyl Alcohol Urgent (02:10/18/2016 Bryce REED) (Ack 2:35 AMcQuoid ER Tech1) (3:13 JSanders R.N.) MEDICATION ORDERS: Acetaminophen PO 1,000 mg (NOW) (04:10/18/2016 Bryce REED) (Ack 4:08 JSanders R.N.) (4:12 JSanders R.N.) IV FLUIDS: IV Saline Lock (02:21 10/18/2016 Bryce REED) (Ack 2:24 JSanders R.N.) (2:45 JSanders R.N.) ORDER SHEET NOTES: [Electronically signed by Denise Mendoza R.N. (04:20 10/18/2016)] [Electronically signed by Yakov Garcia MD (06:24 10/18/2016)] [Electronically locked/signed by Denise Mendoza R.N. (04:20 10/18/2016)]
--- NOTE | 2016-10-18 04:13 | ED ORDER SUMMARY ---
..... Patient: JASON MATHIS OrderSheet [facility] VisitID: [id number] [place] [address] 26y, M Registration Date/Time: 10/18/2016 ORDER SHEET Weight: 165.5 kg (stated) Allergies: Codeine, Toradol GENERAL ORDERS: Chest 1V Urgent (02:10/18/2016 Bryce REED) (Ack 2:25 AMcQuoid ER Tech1) (2:39 GUnger) Medical Technicians (Continuous) (02:10/18/2016 Bryce REED) (2:22 JSanders R.N.) CBC w Diff Urgent (02:10/18/2016 Bryce REED) (Ack 2:25 AMcQuoid ER Tech1) (3:06 JSanders R.N.) CMP Urgent (02:10/18/2016 Bryce REED) (Ack 2:25 AMcQuoid ER Tech1) (3:06 JSanders R.N.) Amylase Urgent (02:10/18/2016 Bryce REED) (Ack 2:25 AMcQuoid ER Tech1) (3:06 JSanders R.N.) Lipase Urgent (02:10/18/2016 Bryce REED) (Ack 2:25 AMcQuoid ER Tech1) (3:06 JSanders R.N.) CPK Urgent (02:10/18/2016 Bryce REED) (Ack 2:25 AMcQuoid ER Tech1) (3:06 JSanders R.N.) Troponin-I Urgent (02:10/18/2016 Bryce REED) (Ack 2:25 AMcQuoid ER Tech1) (3:06 JSanders R.N.) Oxygen (2 L/min) (NC) (02:10/18/2016 Bryce REED) (Ack 2:25 AMcQuoid ER Tech1) (2:45 JSanders R.N.) Pulse oximeter (02:10/18/2016 Bryce REED) (2:22 JSanders R.N.) EKG - ER Stat (02:10/18/2016 Bryce REED) (Ack 2:25 AMcQuoid ER Tech1) (2:34 JSanders R.N.) UA-Culture if indicated Urgent (02:10/18/2016 Bryce REED) (Ack 2:35 AMcQuoid ER Tech1) (3:13 JSanders R.N.) Urine Drug Screen Urgent (02:10/18/2016 Bryce REED) (Ack 2:35 AMcQuoid ER Tech1) (3:13 JSanders R.N.) Ethyl Alcohol Urgent (02:10/18/2016 Bryce REED) (Ack 2:35 AMcQuoid ER Tech1) (3:13 JSanders R.N.) MEDICATION ORDERS: Acetaminophen PO 1,000 mg (NOW) (04:10/18/2016 Bryce REED) (Ack 4:08 JSanders R.N.) (4:12 JSanders R.N.) IV FLUIDS: IV Saline Lock (02:21 10/18/2016 Bryce REED) (Ack 2:24 JSanders R.N.) (2:45 JSanders R.N.) ORDER SHEET NOTES: [Electronically signed by Denise Mendoza R.N. (04:20 10/18/2016)] [Electronically signed by Yakov Garcia MD (06:24 10/18/2016)] [Electronically locked/signed by Denise Mendoza R.N. (04:20 10/18/2016)]
--- NOTE | 2016-10-18 05:34 | DIAGNOSTIC IMAGING REPORT ---
PROCEDURE: XR CHEST 1 VIEW INDICATION: CHEST PAIN TECHNIQUE: Portable AP view 02:38 a.m. COMPARISON: Chest x-ray 06/02/2016. FINDINGS: Lungs are clear. Heart and mediastinum are normal. Thorax is normal. No significant interval change. IMPRESSION: 1. Negative chest.
--- NOTE | 2016-10-18 06:25 | ED MED RECONCILIATION SUMMARY ---
Patient: JASON MATHIS Medication Reconciliation Report [facility] VisitID: [id number] [address] [place] [address] 26y, M Registration Date/Time: 10/18/2016 Weight: 165.5 kg Height/Length: 74 in. BMI: 46.9 ALLERGIES: Codeine, Toradol The patient's Home Medications are listed below: NONE. The source(s) of the original Home Medication information: Not obtained. The following Medications were given to the patient in the Emergency Department: Acetaminophen [PO] PO 1000 mg, administered: 10/18/2016 4:12:00 AM The following Medications were prescribed to the patient: Acetaminophen (available over the counter): take according to label instructions. -- Yakov Garcia MD
--- NOTE | 2016-10-18 06:25 | ED DISCHARGE INSTRUCTIONS ---
Patient: JASON MATHIS General Instructions [facility] VisitID: [id number] [place] [address] 26y, M Registration Date/Time: 10/18/2016 Atypical chest pain Substance abuse- marijuana. INSTRUCTIONS No strenuous activity. Avoid stimulants (such as cigarettes, coffee, cold medicines, sinus medicines, street drugs). Lose weight. Warnings: Further evaluation is necessary. GENERAL WARNINGS: Return or contact your physician immediately if your condition worsens or changes unexpectedly, if not improving as expected, or if other problems arise. OTC Medications: Acetaminophen (available over the counter): take according to label instructions. Follow-up: Follow up with your doctor NARA CLEMENT tomorrow. Call for an appointment. Understanding of the discharge instructions verbalized by patient. ADDITIONAL INFORMATION Chest Pain, Noncardiac Based on your visit today, the exact cause of your chest pain is not certain. Your condition does not seem serious and your pain does not appear to be coming from your heart. However, sometimes the signs of a serious problem take more time to appear. Therefore, please watch for the warning signs listed below. Home Care: Rest today and avoid strenuous activity. Take any prescribed medicine as directed. Follow Up with your doctor or this facility as instructed or if you do not start to feel better within 24 hours. Get Prompt Medical Attention if any of the following occur: A change in the type of pain: if it feels different, becomes more severe, lasts longer, or begins to spread into your shoulder, arm, neck, jaw or back Shortness of breath or increased pain with breathing Cough with dark colored sputum (phlegm) or blood Weakness, dizziness, or fainting Fever of 100.4F (38C) or higher, or as directed by your healthcare provider Swelling, pain or redness in one leg Chest Wall Pain: Costochondritis The chest pain that you have had today is caused by Costochondritis. This condition is due to an inflammation of the cartilage joining the ribs to the breastbone. It is not caused by heart or lung problems. Although the exact cause for costochondritis is not known, it often occurs during times of emotional stress. It can be painful, but it is not dangerous. It usually disappears within one to two weeks, but may recur. Rarely, a more serious condition may cause symptoms similar to costochondritis; therefore, watch for the warning signs listed below. Home Care: If you feel that emotional stress is a cause of your condition, try to identify sources of that stress. It may not be obvious! Learn ways to deal with the stress in your life such as regular exercise, muscle relaxation, meditation, or simply taking time out for yourself. For more information about this, consult your doctor or go to a local bookstore and review books and tapes available on the subject of stress reduction. You may use acetaminophen (Tylenol) or ibuprofen (Motrin, Advil) to control pain, unless another pain medicine was prescribed. [ NOTE: If you have liver disease or ever had a stomach ulcer, talk with your doctor before using these medicines.] The use of heat (hot wet compress or heating pad) with or without local analgesic creams (Deep Heat Rub, Mack Velasquez) will be helpful to reduce pain. Follow Up with your doctor as directed or sooner if you do not start to improve within the next two days. Get Prompt Medical Attention if any of the following occur: A change in the type of pain: if it feels different, becomes more severe, lasts longer, or spreads into your shoulder, arm, neck, jaw or back Shortness of breath or increased pain with breathing Weakness, dizziness, or fainting Cough with dark colored sputum (phlegm) or blood Abdominal pain Dark red or black stools Fever of 100.4F (38C) or higher, or as directed by your healthcare provider Marijuana Abuse Marijuana is the most widely used illegal drug in the [place]. It is called by various names such as pot, weed, blunts, grass, reefer, ganja, hash, hashish. It is usually smoked but can be mixed with foods or brewed as a tea. It is sometimes sold with PCP (Joe Dust) or amphetamine mixed in it. These drugs can cause other harmful side effects. Marijuana can cause the following effects: Changes in mood (stimulated, happy, drowsy, depressed, paranoid) Hallucinations Increased heart rate and blood pressure Increased appetite Time distortion, difficulty concentrating, impaired memory Lung damage (similar to cigarettes with chronic cough, wheezing, frequent colds and bronchitis) You can become psychologically dependent on marijuana. That means the craving to use the drug is emotional or psychological rather than due to physical withdrawal. Is Marijuana Running Your Life? Here are some of the signs: Relying on marijuana to feel good, forget problems, deal with stress or to relax Wanting to be alone most of the time or only with others who use drugs Losing interest in things that used to be important Changes in school or job performance or attendance Spending a lot of time thinking about how to get marijuana Stealing or selling your things so you can buy marijuana Unable to stop using even though you may want to quit Increasing anxiety, anger,or depression Sleeping too much, changes in eating habits (weight loss or gain) Needing to use more to get the same effect Home Care Once you have become addicted to any drug, quitting is hard to do. Most people find they can't quit without help. So, dont try to do this alone. Talk to someone you trust who can support you. Seek professional help. Avoid people and places where drugs are used. That only increases the temptation to use. Follow Up with your doctor or as advised by our staff. For more information or a referral to a treatment center in your area, contact: Your local mental health center or the National Alcohol and Substance Abuse Information Center (501)-109-4479 www.addictioncareoptions.com National [place] on Alcoholism and Drug Dependence 609-702-FLCW www.ncadd.org Marijuana Anonymous 385-642-0212 www.marijuana-anonymous.org Get Prompt Medical Attention if any of the following occur: You feel extreme depression, fear, anxiety, or anger toward yourself or others You feel out of control You feel that you may try to harm yourself or another Acetaminophen Oral tablet What is this medicine? ACETAMINOPHEN (a set a SHAHNAZ mark fen) is a pain reliever. It is used to treat mild pain and fever. How should I use this medicine? Take this medicine by mouth with a glass of water. Follow the directions on the package or prescription label. Take your medicine at regular intervals. Do not take your medicine more often than directed. Talk to your male impersonator regarding the use of this medicine in children. While this drug may be prescribed for children as young as 6 years of age for selected conditions, precautions do apply. What side effects may I notice from receiving this medicine? Side effects that you should report to your doctor or health care management specialist as soon as possible: allergic reactions like skin rash, itching or hives, swelling of the face, lips, or tongue breathing problems fever or sore throat redness, blistering, peeling or loosening of the skin, including inside the mouth trouble passing urine or change in the amount of urine unusual bleeding or bruising unusually weak or tired yellowing of the eyes or skin Side effects that usually do not require medical attention (report to your doctor or health care management specialist if they continue or are bothersome): headache nausea, stomach upset What may interact with this medicine? alcohol imatinib isoniazid other medicines with acetaminophen What if I miss a dose? If you miss a dose, take it as soon as you can. If it is almost time for your next dose, take only that dose. Do not take double or extra doses. Where should I keep my medicine? Keep out of reach of children. Store at room temperature between 20 and 25 degrees C (68 and 77 degrees F). Protect from moisture and heat. Throw away any unused medicine after the expiration date. What should I tell my health care provider before I take this medicine? They need to know if you have any of these conditions: if you frequently drink alcohol containing drinks liver disease an unusual or allergic reaction to acetaminophen, other medicines, foods, dyes or preservatives or trying to get breast-feeding What should I watch for while using this medicine? Tell your doctor or health care management specialist if the pain lasts more than 10 days (5 days for children), if it gets worse, or if there is a new or different kind of pain. Also, check with your doctor if a fever lasts for more than 3 days. Do not take other medicines that contain acetaminophen with this medicine. Always read labels carefully. If you have questions, ask your doctor or pharmacist. If you take too much acetaminophen get medical help right away. Too much acetaminophen can be very dangerous and cause liver damage. Even if you do not have symptoms, it is important to get help right away. You have been given the following additional information: Chest Pain, Noncardiac Chest Wall Pain, Costochondritis Marijuana Abuse Acetaminophen Oral tablet No strenuous activity. (Electronically signed by Yakov Garcia MD 10/18/2016 6:24)
--- NOTE | 2016-10-18 06:25 | ED MAR SUMMARY ---
..... Medication Administration Record [facility] [address] [place] [address] Patient: JASON MATHIS Visit ID: [id number] 26y, M Weight: 165.5 kg Height/Length: 74 in BMI: 46.9 ALLERGIES: Codeine, Toradol Given 04:12 10/18/2016 Denise Mendoza R.N. Medication Administered: ACETAMINOPHEN [PO] (APAP), Dose: 1000 mg Tablets PO. Medication Ordered: Acetaminophen PO 1,000 mg (NOW).
--- NOTE | 2016-10-18 06:25 | ED MAR SUMMARY ---
..... Medication Administration Record [facility] [address] [place] [address] Patient: JASON MATHIS Visit ID: [id number] 26y, M Weight: 165.5 kg Height/Length: 74 in BMI: 46.9 ALLERGIES: Codeine, Toradol Given 04:12 10/18/2016 Denise Mendoza R.N. Medication Administered: ACETAMINOPHEN [PO] (APAP), Dose: 1000 mg Tablets PO. Medication Ordered: Acetaminophen PO 1,000 mg (NOW).
--- NOTE | 2016-10-18 06:25 | ED MED RECONCILIATION SUMMARY ---
Patient: JASON MATHIS Medication Reconciliation Report [facility] VisitID: [id number] [address] [place] [address] 26y, M Registration Date/Time: 10/18/2016 Weight: 165.5 kg Height/Length: 74 in. BMI: 46.9 ALLERGIES: Codeine, Toradol The patient's Home Medications are listed below: NONE. The source(s) of the original Home Medication information: Not obtained. The following Medications were given to the patient in the Emergency Department: Acetaminophen [PO] PO 1000 mg, administered: 10/18/2016 4:12:00 AM The following Medications were prescribed to the patient: Acetaminophen (available over the counter): take according to label instructions. -- Yakov Garcia MD
--- NOTE | 2016-10-18 06:25 | ED DISCHARGE INSTRUCTIONS ---
Patient: JASON MATHIS General Instructions [facility] VisitID: [id number] [place] [address] 26y, M Registration Date/Time: 10/18/2016 Atypical chest pain Substance abuse- marijuana. INSTRUCTIONS No strenuous activity. Avoid stimulants (such as cigarettes, coffee, cold medicines, sinus medicines, street drugs). Lose weight. Warnings: Further evaluation is necessary. GENERAL WARNINGS: Return or contact your physician immediately if your condition worsens or changes unexpectedly, if not improving as expected, or if other problems arise. OTC Medications: Acetaminophen (available over the counter): take according to label instructions. Follow-up: Follow up with your doctor NARA CLEMENT tomorrow. Call for an appointment. Understanding of the discharge instructions verbalized by patient. ADDITIONAL INFORMATION Chest Pain, Noncardiac Based on your visit today, the exact cause of your chest pain is not certain. Your condition does not seem serious and your pain does not appear to be coming from your heart. However, sometimes the signs of a serious problem take more time to appear. Therefore, please watch for the warning signs listed below. Home Care: Rest today and avoid strenuous activity. Take any prescribed medicine as directed. Follow Up with your doctor or this facility as instructed or if you do not start to feel better within 24 hours. Get Prompt Medical Attention if any of the following occur: A change in the type of pain: if it feels different, becomes more severe, lasts longer, or begins to spread into your shoulder, arm, neck, jaw or back Shortness of breath or increased pain with breathing Cough with dark colored sputum (phlegm) or blood Weakness, dizziness, or fainting Fever of 100.4F (38C) or higher, or as directed by your healthcare provider Swelling, pain or redness in one leg Chest Wall Pain: Costochondritis The chest pain that you have had today is caused by Costochondritis. This condition is due to an inflammation of the cartilage joining the ribs to the breastbone. It is not caused by heart or lung problems. Although the exact cause for costochondritis is not known, it often occurs during times of emotional stress. It can be painful, but it is not dangerous. It usually disappears within one to two weeks, but may recur. Rarely, a more serious condition may cause symptoms similar to costochondritis; therefore, watch for the warning signs listed below. Home Care: If you feel that emotional stress is a cause of your condition, try to identify sources of that stress. It may not be obvious! Learn ways to deal with the stress in your life such as regular exercise, muscle relaxation, meditation, or simply taking time out for yourself. For more information about this, consult your doctor or go to a local bookstore and review books and tapes available on the subject of stress reduction. You may use acetaminophen (Tylenol) or ibuprofen (Motrin, Advil) to control pain, unless another pain medicine was prescribed. [ NOTE: If you have liver disease or ever had a stomach ulcer, talk with your doctor before using these medicines.] The use of heat (hot wet compress or heating pad) with or without local analgesic creams (Deep Heat Rub, Mack Velasquez) will be helpful to reduce pain. Follow Up with your doctor as directed or sooner if you do not start to improve within the next two days. Get Prompt Medical Attention if any of the following occur: A change in the type of pain: if it feels different, becomes more severe, lasts longer, or spreads into your shoulder, arm, neck, jaw or back Shortness of breath or increased pain with breathing Weakness, dizziness, or fainting Cough with dark colored sputum (phlegm) or blood Abdominal pain Dark red or black stools Fever of 100.4F (38C) or higher, or as directed by your healthcare provider Marijuana Abuse Marijuana is the most widely used illegal drug in the [place]. It is called by various names such as pot, weed, blunts, grass, reefer, ganja, hash, hashish. It is usually smoked but can be mixed with foods or brewed as a tea. It is sometimes sold with PCP (Joe Dust) or amphetamine mixed in it. These drugs can cause other harmful side effects. Marijuana can cause the following effects: Changes in mood (stimulated, happy, drowsy, depressed, paranoid) Hallucinations Increased heart rate and blood pressure Increased appetite Time distortion, difficulty concentrating, impaired memory Lung damage (similar to cigarettes with chronic cough, wheezing, frequent colds and bronchitis) You can become psychologically dependent on marijuana. That means the craving to use the drug is emotional or psychological rather than due to physical withdrawal. Is Marijuana Running Your Life? Here are some of the signs: Relying on marijuana to feel good, forget problems, deal with stress or to relax Wanting to be alone most of the time or only with others who use drugs Losing interest in things that used to be important Changes in school or job performance or attendance Spending a lot of time thinking about how to get marijuana Stealing or selling your things so you can buy marijuana Unable to stop using even though you may want to quit Increasing anxiety, anger,or depression Sleeping too much, changes in eating habits (weight loss or gain) Needing to use more to get the same effect Home Care Once you have become addicted to any drug, quitting is hard to do. Most people find they can't quit without help. So, dont try to do this alone. Talk to someone you trust who can support you. Seek professional help. Avoid people and places where drugs are used. That only increases the temptation to use. Follow Up with your doctor or as advised by our staff. For more information or a referral to a treatment center in your area, contact: Your local mental health center or the National Alcohol and Substance Abuse Information Center (463)-307-4828 www.addictioncareoptions.com National [place] on Alcoholism and Drug Dependence 822-658-AGYR www.ncadd.org Marijuana Anonymous 732-881-6979 www.marijuana-anonymous.org Get Prompt Medical Attention if any of the following occur: You feel extreme depression, fear, anxiety, or anger toward yourself or others You feel out of control You feel that you may try to harm yourself or another Acetaminophen Oral tablet What is this medicine? ACETAMINOPHEN (a set a SHAHNAZ mark fen) is a pain reliever. It is used to treat mild pain and fever. How should I use this medicine? Take this medicine by mouth with a glass of water. Follow the directions on the package or prescription label. Take your medicine at regular intervals. Do not take your medicine more often than directed. Talk to your mail carrier technician regarding the use of this medicine in children. While this drug may be prescribed for children as young as 6 years of age for selected conditions, precautions do apply. What side effects may I notice from receiving this medicine? Side effects that you should report to your doctor or health animal caretaker supervisor as soon as possible: allergic reactions like skin rash, itching or hives, swelling of the face, lips, or tongue breathing problems fever or sore throat redness, blistering, peeling or loosening of the skin, including inside the mouth trouble passing urine or change in the amount of urine unusual bleeding or bruising unusually weak or tired yellowing of the eyes or skin Side effects that usually do not require medical attention (report to your doctor or health animal caretaker supervisor if they continue or are bothersome): headache nausea, stomach upset What may interact with this medicine? alcohol imatinib isoniazid other medicines with acetaminophen What if I miss a dose? If you miss a dose, take it as soon as you can. If it is almost time for your next dose, take only that dose. Do not take double or extra doses. Where should I keep my medicine? Keep out of reach of children. Store at room temperature between 20 and 25 degrees C (68 and 77 degrees F). Protect from moisture and heat. Throw away any unused medicine after the expiration date. What should I tell my health care provider before I take this medicine? They need to know if you have any of these conditions: if you frequently drink alcohol containing drinks liver disease an unusual or allergic reaction to acetaminophen, other medicines, foods, dyes or preservatives or trying to get breast-feeding What should I watch for while using this medicine? Tell your doctor or health animal caretaker supervisor if the pain lasts more than 10 days (5 days for children), if it gets worse, or if there is a new or different kind of pain. Also, check with your doctor if a fever lasts for more than 3 days. Do not take other medicines that contain acetaminophen with this medicine. Always read labels carefully. If you have questions, ask your doctor or pharmacist. If you take too much acetaminophen get medical help right away. Too much acetaminophen can be very dangerous and cause liver damage. Even if you do not have symptoms, it is important to get help right away. You have been given the following additional information: Chest Pain, Noncardiac Chest Wall Pain, Costochondritis Marijuana Abuse Acetaminophen Oral tablet No strenuous activity. (Electronically signed by Yakov Garcia MD 10/18/2016 6:24)
== END 2016-10-18 04:20 | disposition home or self-care (01) ==
LOC: ED SRH 01:43
DX: R07.89 Other chest pain (principal); F12.10 Cannabis abuse, uncomplicated; I10 Essential (primary) hypertension; F17.210 Nicotine dependence, cigarettes, uncomplicated; Z88.5 Allergy status to narcotic agent; Z88.8 Allergy status to other drugs, medicaments and biological substances
CPT/HCPCS: 90004; 90074; 90100; 90616; 92010; 92235; 92530; 92610; 92760; 92761; 92762; 92763; 92764; 92765; 92766; 92767; 95059